=== PATIENT | female | born 1985 | race Caucasian/White ===

== ENCOUNTER → 2019-04-09 | Outpatient (CLI) | payer MEDICAID, SELFPAY ==
[2019-04-09 10:48] VITALS: BMI 32.9
[2019-04-09 12:26] LABS: Hemoglobin A1c 5.7 % (4.2-6.3)
[2019-04-09 12:32] LABS: Estradiol 112.7 pg/mL; Follicle Stimulating Hormone 2.8 mIU/mL; Prolactin 12.4 ng/mL; T4 Free Direct 1.06 ng/dL (0.76-1.46); Thyroid Stim Hormone (TSH) 0.64 uIU/mL (0.358-3.74)
[2019-04-10 20:06] LABS: DHEA Sulfate 100.2 ug/dL (84.8-378.0)
[2019-04-11 09:05] LABS: Testosterone Free 0.7 pg/mL (0.0-4.2)
[2019-04-13 11:22] LABS: 17-Hydroxyprogesterone 225 ng/dL (.)
== END | disposition home or self-care (01) ==
PROVIDERS: Family Provider Family Medicine; PCP Family Medicine; Referring Provider Obstetrics & Gynecology; Visit Provider Obstetrics & Gynecology
DX: N96 Recurrent pregnancy loss (principal)
CPT/HCPCS: 82627; 82670; 83001; 83036; 83498; 84146; 84402; 84439; 84443; 82626

== ENCOUNTER → 2019-04-13 | Outpatient (CLI) | payer MEDICAID, SELFPAY ==
[2019-04-09 10:48] VITALS: BMI 32.9
--- NOTE | 2019-04-13 12:42 | US_ITS ---
STUDY: ULTRASOUND OF THE FEMALE PELVIS - COMPLETE REASON FOR EXAM: Female, 33 years old. Infertility LMP: TECHNIQUE: Transabdominal transvaginal TECHNICAL QUALITY: Adequate. COMPARISON: None. FINDINGS: The uterus is anteverted and is deviated towards the right. The uterus measures 7.7 x 4.6 x 3.8 cm. Normal uterine cervix. The endometrium measures 10 mm in thickness, and is hyperechoic. There is no demonstrated endometrial mass. There is no demonstrated myometrial mass. I.U.D. - The patient does not have an I.U.D. The right ovary is visualized. The right ovary measures 2.7 x 2.8 x 2.2 cm. There is no right ovarian cyst or ovarian mass. There is no visualized right adnexal mass or complex lesion. There is normal arterial and normal venous vascularity. There is a very small hyperechoic area possibly representing focal fat or nonshadowing calcium The left ovary is visualized. The left ovary measures 2.4 x 2.5 x 1.4 cm. There is no left ovarian cyst or ovarian mass. There is no visualized left adnexal mass or complex lesion. There is normal arterial and normal venous vascularity. There is no fluid in the cul-de-sac. The pre void volume of the bladder was 133.8 ml US/Pelvic (Non ) IMPRESSION: No significant abnormalities. Electronically Signed: Toni Martell MD at 18:35 EDT , Service support ,
--- NOTE | 2019-04-13 12:42 | US_ITS ---
STUDY: ULTRASOUND OF THE FEMALE PELVIS - COMPLETE REASON FOR EXAM: Female, 33 years old. Infertility LMP: TECHNIQUE: Transabdominal transvaginal TECHNICAL QUALITY: Adequate. COMPARISON: None. FINDINGS: The uterus is anteverted and is deviated towards the right. The uterus measures 7.7 x 4.6 x 3.8 cm. Normal uterine cervix. The endometrium measures 10 mm in thickness, and is hyperechoic. There is no demonstrated endometrial mass. There is no demonstrated myometrial mass. I.U.D. - The patient does not have an I.U.D. The right ovary is visualized. The right ovary measures 2.7 x 2.8 x 2.2 cm. There is no right ovarian cyst or ovarian mass. There is no visualized right adnexal mass or complex lesion. There is normal arterial and normal venous vascularity. There is a very small hyperechoic area possibly representing focal fat or nonshadowing calcium The left ovary is visualized. The left ovary measures 2.4 x 2.5 x 1.4 cm. There is no left ovarian cyst or ovarian mass. There is no visualized left adnexal mass or complex lesion. There is normal arterial and normal venous vascularity. There is no fluid in the cul-de-sac. The pre void volume of the bladder was 133.8 ml US/Transvaginal Non- IMPRESSION: No significant abnormalities. Electronically Signed: Toni Martell MD at 18:35 EDT , Service support ,
== END | disposition home or self-care (01) ==
LOC: OPUS 12:37
PROVIDERS: Family Provider Family Medicine; PCP Family Medicine; Referring Provider Obstetrics & Gynecology; Visit Provider Obstetrics & Gynecology
DX: N97.9 Female infertility, unspecified (principal); N96 Recurrent pregnancy loss
CPT/HCPCS: 76830; 76856; 93976

== ENCOUNTER → 2022-03-08 | Outpatient (CLI) | payer MEDICAID, SELFPAY ==
[2022-03-08 13:53] LABS: hCG Titer Quant., Serum 6734 mIU/mL (1-3)
== END | disposition home or self-care (01) ==
LOC: PAVLAB 12:39
PROVIDERS: PCP Family Medicine; Referring Provider Obstetrics & Gynecology; Visit Provider Obstetrics & Gynecology
DX: O36.80X0 Pregnancy with inconclusive fetal viability, not applicable or unspecified (principal); N96 Recurrent pregnancy loss; Z3A.00 Weeks of gestation of pregnancy not specified
CPT/HCPCS: 36415; 84702

== ENCOUNTER → 2022-03-10 | Outpatient (CLI) | payer MEDICAID, SELFPAY ==
[2022-03-10 14:06] LABS: hCG Titer Quant., Serum 9448 mIU/mL (1-3)
== END | disposition home or self-care (01) ==
LOC: PAVLAB 13:14
PROVIDERS: PCP Family Medicine; Referring Provider Obstetrics & Gynecology; Visit Provider Obstetrics & Gynecology
DX: N96 Recurrent pregnancy loss (principal); O36.80X0 Pregnancy with inconclusive fetal viability, not applicable or unspecified; Z3A.00 Weeks of gestation of pregnancy not specified
CPT/HCPCS: 36415; 84702; 86850; 86900; 86901

== ENCOUNTER → 2022-03-12 | Outpatient (CLI) | payer MEDICAID, SELFPAY ==
--- NOTE | 2022-03-12 13:05 | US_ITS ---
STUDY: FIRST TRIMESTER OBSTETRICAL ULTRASOUND REASON FOR EXAM: Female, 36 years old. viability TECHNIQUE: Transvaginal US was obtained to better visualized the ovaries. TECHNICAL QUALITY: Adequate. PRIOR ULTRASOUND: None. FINDINGS: There is visualization of a single gestational sac in a normal intrauterine position. The mean sac diameter (MSD) measures 12 mm, indicating an estimated gestational age (EGA) of 5 weeks, 6 days. The gestational sac shape is within normal limits. There is a visualized yolk sac. The yolk sac measures 4.6 mm. The placenta is non-visualized. Due to early gestation, the placenta is not seen. There is visualization of a live embryo. The crown-rump length (CRL) measures 9 mm, indicating an estimated gestational age (EGA) of 6 weeks, 6 days. There is demonstrated cardiac activity with a heart rate of 123 bpm. The estimated gestation age (EGA) by LMP is 4 weeks, 4 days. The estimated date of delivery (ZOHRA) by LMP is 1.30.23. The estimated gestation age (EGA) by US is 6 weeks, 2 days. The estimated date of delivery (ZOHRA) by US is 1.18.23. The uterus measures 8.2 x 5.7 cm. There is no demonstrated uterine fibroid. The cervix is closed. The right ovary measures in cm: 3. There is 14 mm right ovarian corpus luteum cyst. There is no visualized right adnexal mass or complex lesion. The left ovary measures 2.3 cm. There is no left ovarian cyst. There is no visualized left adnexal mass or complex lesion. There is no fluid in the cul de sac. US/Transvaginal w/Preg US IMPRESSION: There is a single live intrauterine with a heart rate of 123 bpm. The estimated gestation age (EGA) by US is 6 weeks, 2 days. The estimated date of delivery (ZOHRA) by US is 1.18.23. Over 2 week discrepancy between the LMP MA and the US MA. Electronically Signed: Malik Wilson MD at 14:03 EDT ,
== END | disposition home or self-care (01) ==
LOC: OPUS 13:05
PROVIDERS: PCP Family Medicine; Visit Provider Obstetrics & Gynecology
DX: O36.80X0 Pregnancy with inconclusive fetal viability, not applicable or unspecified (principal); Z3A.00 Weeks of gestation of pregnancy not specified
CPT/HCPCS: 76817

== ENCOUNTER → 2022-04-06 | Outpatient (CLI) | payer MEDICAID, SELFPAY ==
[2022-04-06 09:07] LABS: Absolute Lymphocyte Count 3.13 X10^3/uL (0.83-4.51); Absolute Neutrophil Count 6.7 X10^3/uL (2.0-7.7); Basophil# 0.04 X10^3/uL; Basophil% 0.4 % (0-1); Eosinophil# 0.31 X10^3/uL; Eosinophils% 2.8 % (0-5); Hematocrit 40.9 % (37-47); Hemoglobin 14.3 g/dL (12.0-15.0); Lymphocyte # 3.13 X10^3/ul (0.83-4.51); Lymphocyte % 28.3 % (19-41); Mean Corpuscular Volume 88.7 fL (81-99); Mean Platelet Vol. 10.2 fl (6.2-12.0); Monocyte# 0.76 X10^3/uL; Monocyte% 6.9 % (0-10); NRBC Flagged by Analyzer 0 % (0-5); Neutrophil # 6.74 X10^3/uL (2.7-7.7); Neutrophil % 60.9 % (47-70); Platelet Count 306 K/mm3 (150-450); RBC Distribution Width CV 12.2 % (11.6-14.6); Red Blood Count 4.61 M/mm3 (4.2-5.4); White Blood Count 11.1 K/mm3 (4.4-11.0)
[2022-04-06 09:57] LABS: NATERA MAILED SPECIMEN
[2022-04-06 10:09] LABS: HIV - WCH Non-Reactive (Nonreactive); Hepatitis B Surface Antigen Non-Reactive (Nonreactive); Hepatitis C Antibody Non-Reactive (Nonreactive); Rubella IgG Reactive (Nonreactive); Syphilis Antibodies Non-reactive
[2022-04-06 10:53] LABS: Amphetamine Urine VISTA NEGATIVE (<1000 ng/mL); Barbiturate Urine VISTA NEGATIVE (< 200 ng/mL); Benzodiazepine Urine VISTA NEGATIVE (< 200 ng/mL); Cocaine Urine VISTA NEGATIVE (< 300 ng/mL); Ecstacy Urine VISTA NEGATIVE (< 500 ng/mL); Methadone Urine VISTA NEGATIVE (< 300 ng/mL); PCP Urine VISTA NEGATIVE (< 25 ng/mL); THC Urine VISTA POSITIVE (< 50 ng/mL); Vista UDS pH Range 6
== END | disposition home or self-care (01) ==
PROVIDERS: PCP Family Medicine; Referring Provider Obstetrics & Gynecology; Visit Provider Obstetrics & Gynecology
DX: O09.91 Supervision of high risk pregnancy, unspecified, first trimester (principal)
CPT/HCPCS: 36415; 80307; 85025; 86703; 86762; 86780; 86803; 86850; 86900; 86901; 87086; 87088; 87340

== ENCOUNTER → 2022-08-06 | Outpatient (CLI) | payer MEDICAID, SELFPAY ==
[2022-08-06 12:15] LABS: Absolute Neutrophil Count 9.7 X10^3/uL (2.0-7.7); Basophil# 0.04 X10^3/uL; Basophil% 0.3 % (0-1); Eosinophil# 0.24 X10^3/uL; Eosinophils% 1.7 % (0-5); Hematocrit 35.6 % (37-47); Lymphocyte % 22.4 % (19-41); Mean Corp Hgb Conc 33.7 g/dL (32-36); Mean Corpuscular Hgb 30.9 pg (27.0-32.0); Mean Corpuscular Volume 91.8 fL (81-99); Mean Platelet Vol. 10.9 fl (6.2-12.0); Monocyte# 0.95 X10^3/uL; Monocyte% 6.7 % (0-10); NRBC Flagged by Analyzer 0 % (0-5); Neutrophil # 9.72 X10^3/uL (2.7-7.7); Neutrophil % 68.1 % (47-70); Platelet Count 258 K/mm3 (150-450); RBC Distribution Width CV 12.3 % (11.6-14.6); RBC Distribution Width SD 40.9 fl (35.1-43.9); Red Blood Count 3.88 M/mm3 (4.2-5.4); White Blood Count 14.3 K/mm3 (4.4-11.0)
[2022-08-06 12:24] LABS: Glucose Challenge Gest 1H 50g 102 mg/dL (70-140)
== END | disposition home or self-care (01) ==
LOC: LAB 11:27
PROVIDERS: PCP Family Medicine; Referring Provider Obstetrics & Gynecology; Visit Provider Obstetrics & Gynecology
DX: O09.91 Supervision of high risk pregnancy, unspecified, first trimester (principal); Z3A.14 14 weeks gestation of pregnancy
CPT/HCPCS: 36415; 82950; 85025; 86850; 86900; 86901

== ENCOUNTER 2022-09-02 16:30 | Outpatient (CLI) | payer MEDICAID, SELFPAY ==
[2022-09-02 16:38] VITALS: BP 121/71; PULSE 107
[2022-09-02 16:43] VITALS: BMI 33.4
[2022-09-02 17:19] LABS: Hematocrit 33.3 % (37-47); Hemoglobin 11.3 g/dL (12.0-15.0); Mean Corp Hgb Conc 33.9 g/dL (32-36); Mean Corpuscular Hgb 30.8 pg (27.0-32.0); Mean Corpuscular Volume 90.7 fL (81-99); Mean Platelet Vol. 10.3 fl (6.2-12.0); Platelet Count 288 K/mm3 (150-450); RBC Distribution Width CV 12.4 % (11.6-14.6); RBC Distribution Width SD 40.9 fl (35.1-43.9); Red Blood Count 3.67 M/mm3 (4.2-5.4); White Blood Count 13.9 K/mm3 (4.4-11.0)
[2022-09-02 17:38] LABS: ALB/GLOB Ratio 0.6 RATIO (0.9-2.4); AST(SGOT) 8 U/L (15-37); Alanine Aminotransfer ALT/SGPT 11 U/L (13-56); Albumin, Serum 2.5 g/dL (3.2-5.0); Alkaline Phosphatase 144 U/L (45-117); Anion Gap 9 (5-15); BUN 7 mg/dL (7-18); BUN/Creat Ratio 12.7 RATIO (10-20); Calcium,Total 8.5 mg/dL (8.5-10.1); Chloride 109 mmol/L (98-107); Creatinine, Serum 0.55 mg/dL (0.55-1.02); EST Glomerular Filtration Rate 132 mL/min (>60); Est Glom Filt Rate - Afr Amer 160 mL/min (>60); Estimated Creatinine Clearance 111.84 ml/min; Globulin 3.9 g/dL (2.2-4.2); Glucose 144 mg/dL (74-106); Lipase 131 U/L (73-393); Potassium 3.5 mmol/L (3.5-5.1); Protein, Total 6.4 g/dL (6.4-8.2); Sodium Level 140 mmol/L (136-145)
[2022-09-02 17:40] LABS: Bacteria 0 SEEN /hpf (None Seen); Mucous, Urine 0 SEEN /hpf (<or=2+); Red Blood Cells-Urine 0 SEEN /hpf (0-5); White Blood Cells 0 SEEN /hpf (0-5)
[2022-09-02] MEDS: Acetaminophen 500 MG Tablet 1000 MG PO (17:42)
[2022-09-02] MEDS: Ondansetron 8 MG Tablet 4 MG PO (17:43)
[2022-09-02 17:59] LABS: Color, Urine Yellow (Yellow); Glucose, Dipstick Normal (Normal); Ketone-Dipstick Negative (Negative); Leukocyte Esterase-Dipstick Negative /ul (Negative); Nitrite-Dipstick Negative (Negative); Occult Blood-Urine Negative /ul (Negative); Protein-Dipstick Negative (Negative); Specific Gravity, Urine 1.015 (1.002-1.030); Urine Bilirubin Dipstick Negative (Negative); Urine Clarity Sl. Cloudy (Clear); Urine Urobilinogen Normal (Normal)
[2022-09-02 18:35] LABS: Squamous Epithelial Cells - UA 0-5 SEEN /hpf (5-10)
--- NOTE | 2022-09-04 15:16 | OB.TRI.PN ---
Progress Notes Date of Service: 09/02/22 Progress Note: Patient presents for triage evaluation secondary to nausea and vomiting FHT: 150 Moderate variability reactive no decelerations category I tracing [place]: no regular Contractions Assessment and plan: viral gastroenteritis Reactive NST, reassuring maternal and status patient discharged to home to follow-up as scheduled. See problem list details for additional plan information. Laboratory Studies: Laboratory Tests 09/02/22 09/02/22 09/02/22 Range/Units 17:30 17:10 17:10 WBC 13.9 H (4.4-11.0) K/mm3 RBC 3.67 L (4.2-5.4) M/mm3 Hgb 11.3 L (12.0-15.0) g/dL Hct 33.3 L (37-47) % MCV 90.7 (81-99) fL MCH 30.8 (27.0-32.0) pg MCHC 33.9 (32-36) g/dL RDW Std Deviation 40.9 (35.1-43.9) fl RDW Coeff of Caleb 12.4 (11.6-14.6) % Plt Count 288 (150-450) K/mm3 MPV 10.3 (6.2-12.0) fl Sodium 140 (136-145) mmol/L Potassium 3.5 (3.5-5.1) mmol/L Chloride 109 H (98-107) mmol/L Carbon Dioxide 22.0 (21.0-32.0) mmol/L Anion Gap 9 (5-15) BUN 7 (7-18) mg/dL Creatinine 0.55 (0.55-1.02) mg/dL Estim Creat Clear Calc 111.84 ml/min Est GFR (MDRD) Af Amer 160 (>60) mL/min Est GFR (MDRD) Non-Af 132 (>60) mL/min BUN/Creatinine Ratio 12.7 (10-20) RATIO Glucose 144 H (74-106) mg/dL Calcium 8.5 (8.5-10.1) mg/dL Total Bilirubin 0.20 (0.20-1.00) mg/dL AST 8 L (15-37) U/L ALT 11 L (13-56) U/L Alkaline Phosphatase 144 H (45-117) U/L Total Protein 6.4 (6.4-8.2) g/dL Albumin 2.5 L (3.2-5.0) g/dL Globulin 3.9 (2.2-4.2) g/dL Albumin/Globulin Ratio 0.6 L (0.9-2.4) RATIO Lipase 131 (73-393) U/L Urine Color Yellow (Yellow) Urine Clarity Sl. Cloudy (Clear) Urine pH 6.0 (5.0 - 8.0) Ur Specific [place] 1.015 (1.002-1.030) Urine Protein Negative (Negative) mg/dl Urine Glucose (UA) Normal (Normal) mg/dl Urine Ketones Negative (Negative) mg/dl Urine Occult Blood Negative (Negative) /ul Urine Nitrite Negative (Negative) Urine Bilirubin Negative (Negative) mg/dL Urine Urobilinogen Normal (Normal) mg/dl Ur Leukocyte Esterase Negative (Negative) /ul Urine RBC 0 SEEN (0-5) /hpf Urine WBC 0 SEEN (0-5) /hpf Ur Squamous Epith Cells 0-5 SEEN (5-10) /hpf Urine Bacteria 0 SEEN (None Seen) /hpf Urine Mucus 0 SEEN (<or=2+) /hpf Charges/Coding Procedures Urinary/Genital [id number]: [id number] non-stress test Interp
== END 2022-09-02 18:30 | disposition home or self-care (01) ==
LOC: WPOUT 16:31 → WP 16:32
PROVIDERS: PCP Family Medicine; Visit Provider Obstetrics & Gynecology
DX: O98.819 Other maternal infectious and parasitic diseases complicating pregnancy, unspecified trimester (principal); A08.4 Viral intestinal infection, unspecified
CPT/HCPCS: 59025; 59050; 80053; 81001; 83690; 85027; 87086; 99218; G0378

== ENCOUNTER → 2022-09-28 | Outpatient (CLI) | payer MEDICAID, SELFPAY ==
--- NOTE | 2022-09-28 11:13 | US_ITS ---
STUDY: SECOND AND THIRD TRIMESTER OBSTETRICAL ULTRASOUND - LIMITED REASON FOR EXAM: Female, 36 years old growth 36 weeks LMP: 01/27/2022. ZOHRA: 11/03/2022. PRIOR ULTRASOUND: 03/12/2022. TECHNIQUE: Transabdominal scanning. TECHNICAL QUALITY: Adequate. FINDINGS: There is a single intrauterine fetus. The fetus is in a breech presentation. There is demonstrated cardiac activity with a heart rate of 144 bpm. There is a normal amniotic fluid volume. The largest amniotic fluid pocket measures 5.1 cm. The amniotic fluid index (IHSAN) is 9.92 cm. The placenta is fundal. No placenta previa or abruption is identified. The cervix was obscured. Fluid is noted within the stomach and urinary bladder. anatomic survey was not performed. BIOMETRY: BPD: 8.77 cm: 35 weeks, 3 days (head biometry may not be accurate due to positioning). HC: 32.2 cm: 36 weeks, 3 days AC: 29.56 cm: 33 weeks, 4 days FL: 7.02 cm: 36 weeks, 0 days Age by LMP: 34 weeks, 6 days. ZOHRA by LMP: 11/03/2022. age by current US: 35 weeks, 1 days. ZOHRA by current US: 11/01/2022. Estimated weight: 2493 grams, +/- 374 grams, 41.8 percentile. FL/AC: 23.75%, within the normal range. FL/BPD: 80%, within the normal range. FL/HC: 21.8%, within the normal range. CI: 80.78%, within the normal range. HC/AC: 1.09, within the normal range. US/OB Limited With Biometrics IMPRESSION: Single intrauterine demonstrating cardiac activity, in breech position. IHSAN measures 9.92 cm. Estimated weight of 2493 g. Electronically Signed: Abelino Hampton MD at 4:15 EST ,
== END | disposition home or self-care (01) ==
LOC: US 11:12
PROVIDERS: PCP Family Medicine; Visit Provider Obstetrics & Gynecology
DX: N96 Recurrent pregnancy loss (principal); O09.513 Supervision of elderly primigravida, third trimester; Z3A.36 36 weeks gestation of pregnancy
CPT/HCPCS: 76816

== ENCOUNTER → 2022-09-29 | Outpatient (CLI) | payer MEDICAID, SELFPAY ==
--- NOTE | 2022-09-29 09:09 | US_ITS ---
STUDY: OBSTETRICAL ULTRASOUND - BIOPHYSICAL PROFILE REASON FOR EXAM: Female, 36 years old well being LMP: 01/27/2022 PRIOR ULTRASOUND: 09/28/2022 TECHNIQUE: Transabdominal TECHNICAL QUALITY: Adequate. FINDINGS: There is a single intrauterine fetus. The fetus is in a breech presentation. There is demonstrated cardiac activity with a heart rate of 173 bpm. There is a normal amniotic fluid volume. The largest amniotic fluid pocket measures 3.88 cm. The amniotic fluid index (IHSAN) is 10.53 cm. The placenta is fundal in location. There are Grade 2 placental changes. Age by LMP: 35 weeks, 0 days. ZOHRA by LMP: 11/03/2022. BIOPHYSICAL PROFILE: Breathing Movements (FBM): 2 Gross Body Movements (GBM): 2 Tone (FT): 2 Amniotic Fluid Volume (AFV): 2 TOTAL SCORE: 8 / 8 US/Biophysical Prof W/O Non Stres IMPRESSION: Normal biophysical profile of 8/8. presentation remains breech Electronically Signed: Anjum Chirinos MD at 11:57 EST ,
== END | disposition home or self-care (01) ==
LOC: OPUS 09:07
PROVIDERS: PCP Family Medicine; Visit Provider Obstetrics & Gynecology
DX: O26.879 Cervical shortening, unspecified trimester (principal); N96 Recurrent pregnancy loss
CPT/HCPCS: 76819

== ENCOUNTER → 2022-10-07 | Outpatient (CLI) | payer MEDICAID, SELFPAY ==
--- NOTE | 2022-10-07 09:07 | US_ITS ---
STUDY: OBSTETRICAL ULTRASOUND - BIOPHYSICAL PROFILE REASON FOR EXAM: Female, 36 years old well being LMP: 01/27/2022. PRIOR ULTRASOUND: Comparison is made with prior study dated 09/29/2022. TECHNIQUE: Transabdominal TECHNICAL QUALITY: Adequate. FINDINGS: There is a single intrauterine fetus. The fetus is in a breech presentation. There is demonstrated cardiac activity with a heart rate of 152 bpm. There is a normal amniotic fluid volume. The largest amniotic fluid pocket measures 3.6 cm. The amniotic fluid index (IHSAN) is 12 cm. The placenta is fundal in location. There are Grade 2 placental changes. Age by LMP: 36 weeks, 1 days. ZOHRA by LMP: 11/03/2022. BIOPHYSICAL PROFILE: Breathing Movements (FBM): 2 Gross Body Movements (GBM): 2 Tone (FT): 2 Amniotic Fluid Volume (AFV): 2 TOTAL SCORE: / US/Biophysical Prof W/O Non Stres IMPRESSION: Normal biophysical profile of 05/24. Electronically Signed: Henry Amaya MD at 13:19 EST ,
== END | disposition home or self-care (01) ==
PROVIDERS: PCP Family Medicine; Referring Provider Registered Nurse; Visit Provider Registered Nurse
DX: O26.879 Cervical shortening, unspecified trimester (principal); N96 Recurrent pregnancy loss; Z3A.36 36 weeks gestation of pregnancy; O32.1XX0 Maternal care for breech presentation, not applicable or unspecified
CPT/HCPCS: 76819; 87081

== ENCOUNTER → 2022-10-13 | Outpatient (CLI) | payer MEDICAID, SELFPAY ==
--- NOTE | 2022-10-13 09:15 | US_ITS ---
STUDY: ULTRASOUND BIOPHYSICAL PROFILE REASON FOR EXAM: Female, 36 years old. well-being TECHNIQUE: Transverse abdominal pelvic ultrasound was performed. TECHNICAL QUALITY: Adequate. COMPARISON: 10/07/2022 FINDINGS: Examination demonstrates a single live intrauterine gestation in breech presentation. The heart rate is 145 BPM. Placenta is fundal with no previa. The placental grade is 2. Amniotic fluid volume is normal with an IHSAN of 10.1 cm., Largest pocket is 3.4 cm BIOPHYSICAL PROFILE (BPP) breathin/2 movement: 2/2 tone: 2/2 Amniotic fluid: 2/2 US/Biophysical Prof W/O Non Stres IMPRESSION: Normal biophysical profile 05/24. Electronically Signed: Anjum Chirinos MD at 14:56 EST ,
== END | disposition home or self-care (01) ==
LOC: OPUS 09:14
PROVIDERS: PCP Family Medicine; Visit Provider Registered Nurse
DX: O26.879 Cervical shortening, unspecified trimester (principal); N96 Recurrent pregnancy loss
CPT/HCPCS: 76819

== ENCOUNTER 2022-10-19 11:00 | Inpatient (IN) | payer MEDICAID, SELFPAY ==
[2022-10-19] VITALS (21 sets, daily range): BP systolic 93–140; BP diastolic 40–80; PULSE 91–103; RESP 16–20; TEMP 35.8–37.4; O2SAT 95–99; BMI 35.5
[2022-10-19 09:52] LABS: Hematocrit 35.5 % (37-47); Hemoglobin 12.1 g/dL (12.0-15.0); Mean Corp Hgb Conc 34.1 g/dL (32-36); Mean Platelet Vol. 10.3 fl (6.2-12.0); Platelet Count 277 K/mm3 (150-450); RBC Distribution Width CV 12.8 % (11.6-14.6); RBC Distribution Width SD 42.3 fl (35.1-43.9); White Blood Count 14.8 K/mm3 (4.4-11.0)
[2022-10-19 10:04] LABS: AST(SGOT) 9 U/L (15-37); Alanine Aminotransfer ALT/SGPT 10 U/L (13-56); Creatinine, Serum 0.57 mg/dL (0.55-1.02); EST Glomerular Filtration Rate 126 mL/min (>60); Est Glom Filt Rate - Afr Amer 153 mL/min (>60); Estimated Creatinine Clearance 107.92 ml/min; Uric Acid 4.5 mg/dL (2.6-6.0)
[2022-10-19 10:06] LABS: Protein, Urine (Random) 7.4 mg/dL (<11.9); Protein:Creat Ratio 262 mg/g CRE (0-200)
[2022-10-19] MEDS: 0.9 % NaCl (Sterile) Posiflush 10 mL IV (10:31)
[2022-10-19] MEDS: Lactated Ringers 1,000 ML 999 ML IV (10:31)
--- NOTE | 2022-10-19 11:03 | HP.PCM.OB_ITS ---
HPI - General General Date of Admission: 10/19/22 HPI Narrative ELIE FREEMAN, is a 36y/o @ 37 weeks 6 days who presents to L&D due to back pain and contraction pain and elevated blood pressures at home. She was found to be dilated 1 cm and 0 to +1 station, IV fluids were started and contractions continued. On repeat check she was found to be breech and 1.5 cm dilated, softer, and tearful. She is diagnosed to be in early labor. The patient has a history of 2 prior sections. Her last meal was last night. She denies loss of fluid, vaginal bleeding, dec fm, headaches, nausea, or ruq pain. Maternal Data Information ZOHRA Calculator Estimated Delivery Date Method Current WG Current Estimate 11/03/22 Ultrasound #1 37w 6d PFSH PFS Medical History Abnormal Pap smear of cervix Anemia Anxiety Asthma Atrial fibrillation Depression Fibromyalgia Hypothyroidism IBS (irritable bowel syndrome) Marijuana abuse Migraines Home Medications cetirizine 10 mg capsule (Zyrtec) 10 mg PO DAILY Check with primary doctor 07/09/22 [History Last Taken 1 Day Ago ~09/01/22] vitamin#30 30 mg iron-10 mg iron-folic acid 1 mg-omg3 capsule 1 cap PO DAILY 07/09/22 [History Last Taken 1 Day Ago ~09/01/22] progesterone micronized 200 mg capsule See Rx Instructions .Route .COMPLEX #90 caps 07/16/22 [Rx Last Taken 1 Day Ago ~09/01/22] citalopram 40 mg tablet 40 mg PO DAILY anxiety 10/19/22 [History Last Taken Unknown] Allergy/AdvReac Type Severity Reaction Status Date / Time amoxicillin Allergy Mild vomiting Verified 10/15/22 13:34 aspirin Allergy Mild vomiting Verified 10/15/22 13:34 azithromycin [From Zithromax] Allergy Mild Vomiting Verified 10/19/22 09:13 codeine Allergy Mild hallucinati Verified 10/15/22 13:34 ons doxycycline Allergy Mild vomiting Verified 10/15/22 13:34 Penicillins Allergy Mild vomiting Verified 10/15/22 13:34 Family History Father Atrial fibrillation Sister Atrial fibrillation Aunt Atrial fibrillation Uncle Atrial fibrillation Grandmother Atrial fibrillation Mother Thyroid disorder Other Diabetes Surgical History H/O oral surgery History of surgery on right wrist S/P s/p low back surgery S/P tonsillectomy and adenoidectomy Social History Smoking Status: Light Smoker (<10/day) alcohol intake: never substance use type: does not use caffeine: Yes what type of physical activity do you participate in: none frequency: daily seatbelt use: always do you feel safe at home: Yes additional social history: Boyfriend-Abilio 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 Date Name GA/Weeks Outcome Route Bth Weight Gen Labor Lgth Anesthesia Del Locatn Provider FOB 04/10/06 Justine 38 live - full term 6lbs Female Merged with [facility] Dr. Naveen Ontiveros 03/16/12 Marzena 20 still Female [facility] [place] Delivery Date: 04/10/06 Last Updated by: Beverly Cobos Early contractions at 3 1/2 months. Labored stalled. Delivery Date: 03/16/12 Last Updated by: Beverly Cobos Spotting, cramping continuously. Visit Details Expected Delivery Route/Plan RLTCS Plans Covid status:discussed Flu vaccine: discussed Tdap vaccine: no Rhogam: no LARC form signed: yes movement and labor precautions reviewed. Problem list reviewed and updated with the most current plan of care details and appropriate orders placed. Relevant counseling for the gestational age provided. Continue routine care and follow up unless otherwise noted in visit notes/problem list details OB Flowsheet Initial Weight: Not Recorded Date -?-?-?-?-?-?-?-?-?-?-?-?- EGA Weight BP Urine Prot -?-?-?-?-?-?-?-?-?-?-?-?- Glucose FHR FuHt Pres Dilation -?-?-?-?-?-?-?-?-?-?-?-?- Effaced St Visit Note 03/16/22 -?-?-?-?-?-?-?-?-?-?-?-?- 6w 6d 158 lb 2 oz 130/80 130/80 -?-?-?-?-?-?-?-?-?-?-?-?- 160 -?-?-?-?-?-?-?-?-?-?-?-?- JV- CRL measurin g 7w2d today consistent with ultrasound last week. pt states that bleeding stopped. There is a small subchorionic hemorrhage. Starting vaginal progesterone. 04/06/22 -?-?-?-?-?-?-?-?-?-?-?-?- 9w 6d 162 lb 124/78 -?-?-?-?-?-?-?-?-?-?-?-?- 156 -?-?-?-?-?-?-?-?-?-?-?-?- JV- CRL measurin g 10 weeks 4 days today. pt was at [facility] over the weekend for heavy bleeding after she was jumped on by a dog. On ultrasound there is blood in the cx but nothin around the placenta or fetus. plan to keep appt with MFM later this month. 05/07/22 -?-?-?-?-?-?--?-?-?-?-?-?- 14w 2d 173 lb 4 oz 118/72 Nega tive -?-?-?-?-?-?-?-?-?-?-?-?- Negative 150 -?-?-?-?-?-?-?-?-?-?-?-?- SM- no vb alberto ng has fu with mfm next week, having dizziness and palpitations refer to cardio for consult 07/09/22 -?-?-?-?-?-?-?-?-?-?-?-?- 23w 2d 175 lb 126/82 Negative -?-?-?-?-?-?-?-?-?-?--?-?- Negative 140 23 -?-?-?-?-?-?-?-?-?-?-?-?- SM- discussed lopes sn't shown for visit due to ride issues, reviewed. has echo scheduled. 08/06/22 -?-?-?-?-?-?-?-?-?-?-?-?- 27w 2d 179 lb 4 oz 120/76 Nega tive -?-?-?-?-?-?-?-?-?-?-?-?- Negative 140 27 -?-?-?-?-?-?-?-?-?-?-?-?- SM- no vb lof go od fm no regualr ctx cbc gct 08/26/22 -?-?-?-?-?-?-?-?-?-?-?-?- 30w 1d 184 lb 4 oz 124/78 Nega tive -?-?-?-?-?-?-?-?-?-?-?-?- Negative 146 31 -?-?-?-?-?-?-?-?-?-?-?-?- MH-No VB, LOF. G ood FM. Larc. 09/08/22 -?-?-?-?-?-?-?-?-?-?-?-?- 32w 0d 186 lb 8 oz 115/74 Nega tive -?--?-?-?-?-?-?-?-?-?-?-?- Negative 130 -?-?-?-?-?-?-?-?-?-?-?-?- LC-no vb,lof,ctx . good fm. NST reactive today. denies concerns. 09/15/22 -?-?-?-?-?-?-?-?-?--?-?-?- 33w 0d 187 lb 136/72 Negative -?-?-?-?-?-?-?-?-?-?-?-?- Negative 150 -?-?-?-?-?-?-?-?-?-?-?-?- MH-NST only reac tive 09/22/22 -?-?-?-?-?-?-?-?-?-?-?-?- 34w 0d 194 lb 121/80 Negative -?-?-?-?-?-?-?-?-?-?-?-?- Negative 130 -?-?-?-?-?-?-?-?-?-?-?-?- JV pt is to be h aving bpp's weekly not nst's we fixed that today. no complains. rto in 2 weeks and in one week for bpp 10/07/22 -?-?-?-?-?-?-?-?-?-?-?-?- 36w 1d 189 lb 8 oz 124/72 Nega tive -?-?-?-?-?-?-?-?-?-?-?-?- Negative 142 38 Breech 1 -?-?-?-?-?-?-?-?-?-?-?-?- 0 MH-No VB , LOF. Good FM. BPP today. GBS done 10/15/22 -?-?-?-?-?-?-?-?-?-?-?-?- 37w 2d 197 lb 4 oz 127/8 127/88 Negative -?-?-?-?-?-?-?-?-?-?-?-?- Negative 140 38 -?-?-?-?-?-?-?-?-?-?-?-?- SM- no vb lof go od fm no regular ctx ROS Constitutional Constitutional: Denies change in weight, fatigue, fever(s), headache(s), poor appetite or weakness Eyes Eyes: Denies blurry vision, change in vision, seeing flashes or spots in vision ENT HEENT: Denies dizziness, headache(s), loss taste/smell or sore throat Cardiovascular Cardiovascular: Denies chest pain, dizziness, dyspnea, irregular heart rhythm, leg edema, palpitations, rapid heart rate or vomiting Respiratory/Chest Respiratory/Chest: Denies chest tightness, cough, dyspnea or breast pain Gastrointestinal Gastrointestinal: Denies abdominal pain, anorexia, constipation, cramping, diarrhea, hemorrhoids, vomiting or weight changes Genitourinary Genitourinary: Denies dysuria, flank pain, genital lesions, genital pain, urinary frequency or urinary urgency Musculoskeletal Musculoskeletal: Denies back pain, difficulty walking, joint pain, limited range of motion, muscle cramps or numbness Integumentary Integumentary: Denies lesions or unusual bruising Neurologic Neurologic: Denies abnormal movements, abnormal speech, dizziness, numbness, seizure-like activity or syncope Psychiatric Psychiatric: Denies anxiety, behavioral changes, change in appetite, change in libido, cognitive impairment, confusion, depression, difficulty concentrating, hallucinations or suicidal thoughts Endocrine Endocrinology: Denies excessive sweating, polydipsia or polyuria Hematologic/Lymphatic Hematologic/Lymphatic: Denies easy bleeding, easy bruising or lymphadenopathy Allergic/Immunologic Allergic/Immunologic: Denies itchy eyes, lip swelling, seasonal rhinorrhea, rhinitis, throat swelling, tongue swelling, eczemia, wheezing or asthma Vital Signs Vital Signs Vital Signs: 10/19/22 09:12 10/19/22 09:12 10/19/22 09:27 Pulse Rate 92 Blood Pressure 140/75 H 134/76 H BP Systolic 140 134 BP Diastolic 75 76 10/19/22 09:27 10/19/22 09:43 10/19/22 09:43 Pulse Rate 96 101 H Blood Pressure 133/80 H BP Systolic 133 BP Diastolic 80 10/19/22 09:57 10/19/22 09:57 10/19/22 10:12 Pulse Rate 93 Blood Pressure 119/64 122/64 H BP Systolic 119 122 BP Diastolic 64 64 10/19/22 10:12 Pulse Rate 100 Blood Pressure BP Systolic BP Diastolic Weight Weight: 194 lb 7.163 oz Body Mass Index (BMI) 35.5 Physical Exam Const alert, oriented x3, no apparent distress and healthy appearing General Appearance: cooperative; Negative for anxious HEENT normocephalic Face and Sinus: normal facial exam Eyes EOMs intact bilaterally and no scleral icterus General Eye: normal appearance of both eyes Neck full ROM and supple Lymph Lymphatic: no lymphadenopathy noted Chest Chest: abnormal inspection of the chest Resp normal respiratory effort Effort and Inspection: able to speak in complete sentences Cardio regular rate GI soft to palpation and non-tender Inspection: gravid Palpation: soft; Negative for tender Back/Spine no CVA tenderness Extremity normal to inspection, full ROM and no clubbing, cyanosis or edema General Extremity: Negative for calf tenderness or edema Skin Lesions: no lesions Rashes: no rashes Psych mental status grossly normal Labs Labs Labs: Blood Type A POSITIVE Antibody Screen NEGATIVE Hct 35.5 % (37-47) L Hgb 12.1 g/dL (12.0-15.0) Pap Smear Negative Obstetrics US Syphilis Total Ab Non-reactive Rubella IgG Antibody Reactive (Nonreactive) Hep Bs Antigen Non-Reactive (Nonreactive) HIV 1&2 Antibody Non-Reactive (Nonreactive) Glucose 1 Hr 50 gm 102 mg/dL (70-140) Miscellaneous Test Assessment & Plan (1) Breech presentation: (2) Short cervical length during : COMMENT: progesterone supplement. stable doing well. (3) Marijuana abuse: COMMENT: +tox 04/06, random screening (4) : QUALIFIERS: Weeks of gestation: 34 weeks Qualified Code(s): Z3A.34 - 34 weeks gestation of COMMENT: GBS Negative, anatomy nl, carrier neg. , NIPT low risk. NT normal 1st trimester (5) History of delivery: COMMENT: patient desires repeat section. RLTCS scheduled 10/27/22 with [facility] (6) Supervision of high risk , unspecified, first trimester: COMMENT: PRR ZOHRA 11/03/22 PC Marzena Catalan(stillbirth) BF Abilio (7) Recurrent loss: COMMENT: nl US and neg APL workup06/07 CL check in 2 wks, 07/08 CL nl, serial growth US, wkly BPP after 32 wk, growth 08/19 1350g 52% cancelling nsts and ordering weekly BPP for h/o 20+ week loss per m. 10/07 nl BPP. (8) Atrial fibrillation: COMMENT: previously.. no meds. stable. (9) Hypothyroidism: QUALIFIERS: Hypothyroidism type: acquired Qualified Code(s): E03.9 - Hypothyroidism, unspecified COMMENT: no meds, thyromegaly. labs nl. (10) Anxiety: COMMENT: counseling encouraged, increased celexa to 40mg. PLAN: Plan plan for ERAS repeat section sandra due to early labor and breech presentation 2 grams Ancef now. labs to include tox screen due to h/o THC use during early .
[2022-10-19] MEDS: Lactated Ringers 1,000 ML 150 ML IV (11:32)
[2022-10-19] MEDS: Acetaminophen 500 MG Tablet 1000 MG PO ×3 (11:45→23:49)
[2022-10-19] MEDS: Sodium Citrate/Citric Acid 30 ML UDC PO (11:47)
[2022-10-19 11:59] LABS: Amphetamine Urine VISTA NEGATIVE (<1000 ng/mL); Barbiturate Urine VISTA NEGATIVE (< 200 ng/mL); Benzodiazepine Urine VISTA NEGATIVE (< 200 ng/mL); Cocaine Urine VISTA NEGATIVE (< 300 ng/mL); Ecstacy Urine VISTA NEGATIVE (< 500 ng/mL); Methadone Urine VISTA NEGATIVE (< 300 ng/mL); PCP Urine VISTA NEGATIVE (< 25 ng/mL); THC Urine VISTA NEGATIVE (< 50 ng/mL); Vista UDS pH Range 7
[2022-10-19] MEDS: Cefazolin 2 GM in 0.9% Normal Saline 100 ML IV (12:00)
--- NOTE | 2022-10-19 12:16 | DCINST_ITS ---
Discharge Instructions Diet Discharge Diet: No restrictions Activity Discharge Activity: May Not Drive (for 2 weeks or while taking narcotic pain medications.), May Shower and May Take a Tub Bath (in 7 days.) May resume sexual activity in: 4-6 weeks Weight Bearing Status: Full weight bearing Lifting Restrictions: 20 pounds Dressing / Incision Call your doctor if your incision/area has: Continuous Slow Oozing, Sudden Increased Bleeding, Increased Pain/ Swelling, Increased Redness and Foul Smelling Discharge Call your doctor if you observe: Fever of 101 or Higher and Using more than 1 pad per hour Suture Line Care: Avoid Pulling/Pushing and Avoid Pinching/Bending Cleanse incision/area with: Soap & Water and Keep Dressing Clean & Dry Follow Up Care Please Follow Up With: Kika Cardenas DO When: Call [phone] to make an appointment for an incision check in 1-2 weeks. Test Results: Test results from this visit will be discussed in further detail at your follow- up appointment, if applicable. Discharge Plan Admission Admit Date/Time: 10/19/22 11:00 Primary Reason for Your Visit: section Attending Provider: Kika Cardenas Primary Care Provider: Leslie Richmond Discharge Orders/Prescriptions Prescriptions: New oxycodone-acetaminophen [Percocet] 5-325 mg tablet 1 tab PO Q4H PRN (Reason: pain) 7 Days Qty: 30 0RF Rx Instructions: 1-2 tabs q 4 hrs as needed for pain naproxen 500 mg tablet 500 mg PO BID PRN (Reason: pain) Qty: 30 0RF Continued PNV #[id number] 30 mg iron-10 mg iron-1 mg capsule 1 cap PO DAILY Zyrtec 10 mg capsule 10 mg PO DAILY citalopram 40 mg tablet 40 mg PO DAILY Discontinued progesterone micronized 200 mg capsule See Rx Instructions .ROUTE .COMPLEX Qty: 90 0RF Dose Instruction: INSERT 1 CAPSULE VAGINALLY AT BEDTIME PHARMACY NOT CONTRACTED Rx Instructions: INSERT 1 CAPSULE VAGINALLY AT BEDTIME PHARMACY NOT CONTRACTED Referrals / Follow Up: Leslie Richmond MD [Primary Care Provider] - Disposition Disposition (needs filled in before D/C Order can be placed): Home, Self Care
--- NOTE | 2022-10-19 13:25 | OP.PCM_ITS ---
Assessment & Plan (1) Recurrent loss: COMMENT: nl US and neg APL workup06/07 CL check in 2 wks, 07/08 CL nl, serial growth US, wkly BPP after 32 wk, growth 08/19 1350g 52% cancelling nsts and ordering weekly BPP for h/o 20+ week loss per mfm. 10/07 nl BPP. (2) Supervision of high risk , unspecified, first trimester: COMMENT: PRR ZOHRA 11/03/22 Marzena Rodriguez(stillbirth) BF Abilio (3) History of delivery: COMMENT: patient desires repeat section. RLTCS scheduled 10/27/22 with JV (4) : QUALIFIERS: Weeks of gestation: 34 weeks Qualified Code(s): Z3A.34 - 34 weeks gestation of COMMENT: GBS Negative, anatomy nl, carrier neg. , NIPT low risk. NT normal 1st trimester (5) Short cervical length during : COMMENT: progesterone supplement. stable doing well. (6) Breech presentation: (7) Marijuana abuse: COMMENT: +tox 04/06, random screening (8) Atrial fibrillation: COMMENT: previously.. no meds. stable. (9) Hypothyroidism: QUALIFIERS: Hypothyroidism type: acquired Qualified Code(s): E03.9 - Hypothyroidism, unspecified COMMENT: no meds, thyromegaly. labs nl. (10) Anxiety: COMMENT: counseling encouraged, increased celexa to 40mg. Maternal Data Information ZOHRA Calculator Estimated Delivery Date Method Current WG Current Estimate 11/03/22 Ultrasound #1 37w 6d Final ZOHRA: 11/03/22 Final ZOHRA Source: US <20 weeks Gestational age: 37 weeks 6 days Details Operative Information Date of Procedure: 10/19/22 Pre-Operative Diagnosis: @ 37 weeks 6 days, early labor, breech presentation, prior section Post-Operative Diagnosis: @ 37 weeks 6 days, early labor, breech presentation, prior section Classification: ALESSANDRA Procedure Type: low transverse operator maintainer #1: Kiki Harvey Type of Anesthesia: Spinal Antibiotic Given: Ancef 2 grams IV x1 Estimated Blood Loss: 600cc Fluids Replaced: 1800cc Findings Description of Procedure: The patient is a 36 y/o @ 37 weeks 6 days presented for repeat in early labor and breech presentation. Spinal anesthesia was placed without difficulty. Bey catheter was placed. The patient was placed in the dorsal supine position with leftward tilt. Patient was prepped and draped in the normal sterile fashion. Pfannenstiel skin incision was made with the scalpel and carried through to the underlying layer of fascia with the scalpel. Fascia was nicked in the midline and the incision extended laterally. The rectus bellies were dissected off superiorly and inferiorly with out complication both sharply and bluntly. The peritoneum was entered digitally. The incision was stretched and a low transverse uterine incision was made with the scalpel. The infant's buttocks was delivered through the uterus incision and the infant was delivered to the anterior shoulder, which was delivered with a sweeping motion. A sterile towel was then wrapped around the infant's waist and the turned in a counterclockwise manner to deliver the posterior shoulder in the same fashion. The head was delivered atraumatically. The cord was clamped and cut and the was handed off to awaiting nurse. The placenta was delivered spon taneously immediately following and was noted to be intact and have a three- vessel cord. The uterus was exteriorized cleared of all clots and debris, and the incision was closed in a double layer closure using #1 Monocryl. The ovaries and fallopian tubes were noted to be within normal limits. The uterus was returned to the maternal abdomen and gutters were cleared of all clots and debris. The peritoneum was closed with 3-0 Monocryl in a running fashion. Gloves were changed prior to fascial closure. Fascia was closed with 0 PDS in a running fashion. Subcutaneous tissue was copiously irrigated and the skin was closed with 3-0 Monocryl in a subcuticular fashion. Mepilex dressing was applied without complication. Patient was taken to recovery in stable condition. It was discussed with the patient that based on the clinical information obtained during this encounter, combined with her history, at this time I would recommend repeat section for future deliveries if further pregnancies are desired. Presentation: Positive for Vertex Amniotic Membrane Rupture Type: Artificial Amniotic Fluid Description: Clear Placental Delivery Description: Manual Removal Placenta Disposition: [facility] Cord Vessel Description: 3 Vessels Cord Entanglement: None Infant A Gender: Female (1 minute): 9 (5 minute): 9 Delayed Cord Clamping: Yes Complications Risks of Surgery Discussed w/Patient: Bleeding, Anesthesia Risks, Infection, Need for Future C-Sections and Injury to surrounding structure(s) including bowel and bladder Multi Select Codes Urinary/Genital Urinary/Genital CPT Codes: 39969 delivery+ Care([facility])
[2022-10-19] MEDS: Oxytocin 15 Units/NS 250ml 15 UNITS/250 ML IV.SOLN 83 UNITS IV (13:30)
[2022-10-19] MEDS: Ketorolac 30 MG/ML Syringe IV ×2 (13:51→21:49)
[2022-10-19] MEDS: Lactated Ringers 1,000 ML 100 ML IV (16:33)
[2022-10-19] MEDS: Citalopram 40 MG TABLET PO (21:50)
[2022-10-19] MEDS: Enoxaparin 40 MG/0.4 ML Syringe SC (23:48)
[2022-10-20] MEDS: Lactated Ringers 1,000 ML 100 ML IV (02:09)
[2022-10-20 03:38] VITALS: BP 117/79; PULSE 90; RESP 16; TEMP 36.1; O2SAT 94
[2022-10-20] MEDS: Ketorolac 30 MG/ML Syringe IV ×2 (03:43→09:40)
[2022-10-20 05:31] LABS: Hematocrit 30.5 % (37-47); Mean Corp Hgb Conc 32.8 g/dL (32-36); Mean Corpuscular Hgb 30.7 pg (27.0-32.0); Mean Corpuscular Volume 93.6 fL (81-99); Mean Platelet Vol. 10.1 fl (6.2-12.0); Platelet Count 242 K/mm3 (150-450); RBC Distribution Width CV 12.7 % (11.6-14.6); RBC Distribution Width SD 43.7 fl (35.1-43.9); Red Blood Count 3.26 M/mm3 (4.2-5.4); White Blood Count 16.9 K/mm3 (4.4-11.0)
[2022-10-20] MEDS: Acetaminophen 500 MG Tablet 1000 MG PO ×2 (06:29→13:26)
[2022-10-20 08:34] VITALS: BP 127/70; PULSE 92; RESP 18; TEMP 36.3; O2SAT 97
--- NOTE | 2022-10-20 08:35 | PN.OBGYN_ITS ---
Subjective Subjective Patient doing well without complaints. Tolerating PO. Ambulating and voiding without difficulty. Feeding well. Denies chest pain, shortness of breath, calf pain/swelling, fevers, chills, lightheadedness. Objective Data Objective Data Vital Signs: Vital Signs Temp Pulse Resp BP Pulse Ox O2 Del Method 97 F L 90 16 117/79 94 Room Air 10/20/22 03:38 10/20/22 03:38 10/20/22 03:38 10/20/22 03:38 10/20/22 03:38 10/20/22 03:38 Oxygen Delivery Method Room Air Weight: 194 lb 7.163 oz Body Mass Index (BMI) 35.5 Intake & Output: Intake and Output for Last 24 Hours 10/18/22 10/19/22 10/20/22 23:59 23:59 23:59 Intake Total 1530 / 1530 960 / 960 Output Total 600 / 600 300 / 300 Balance 930 / 930 660 / 660 Lab / Micro Data Result Diagrams: 10/20/22 05:26 10/19/22 09:15 Labs: Laboratory Results - last 24 hr 10/19/22 09:15: U Random Total Protein 7.4, Urine Creatinine 28.20, Protein/Creatinin Ratio 262 H 10/19/22 09:15: Creatinine 0.57, Estim Creat Clear Calc 107.92, Est GFR (MDRD) Af Amer 153, Est GFR (MDRD) Non-Af 126, Uric Acid 4.5, AST 9 L, ALT 10 L 10/19/22 09:30: WBC 14.8 H, RBC 3.90 L, Hgb 12.1, Hct 35.5 L, MCV 91.0, MCH 31.0 , MCHC 34.1, RDW Std Deviation 42.3, RDW Coeff of Calbe 12.8, Plt Count 277, MPV 10.3 10/19/22 09:30: Blood Type A POSITIVE, Antibody Screen NEGATIVE 10/19/22 10:00: Urine Opiates Screen NEGATIVE, Urine Methadone Screen NEGATIVE, Ur Barbiturates Screen NEGATIVE, Ur Phencyclidine Scrn NEGATIVE, Ur Amphetamines Screen NEGATIVE, MDMA (Ecstasy) Screen NEGATIVE, U Benzodiazepines Scrn NEGATIVE, Urine Cocaine Screen NEGATIVE, U Cannabinoids Screen NEGATIVE, Ur Drug Screen Comment 10/20/22 05:26: WBC 16.9 H, RBC 3.26 L, Hgb 10.0 L, Hct 30.5 L, MCV 93.6, MCH 30.7, MCHC 32.8, RDW Std Deviation 43.7, RDW Coeff of Caleb 12.7, Plt Count 242, MPV 10.1 Physical Exam Const alert, oriented x3 and no apparent distress Resp normal respiratory effort, normal air movement, no retractions and no use of accessory muscles Cardio regular rate GI normal to inspection, nondistended, normoactive bowel sounds and soft to palpation GI Narrative: fundus firm at u scant lochia Bladder / Kidney Exam: catheter in place urethral (draining clear straw colored urine) Skin Skin Narrative: dressing clean, dry and intact Neuro oriented x3 Assessment & Plan (1) Status post section: COMMENT: 10/19/22-MINERVA MITTAL girl PLAN: Plan s/p LTCS PPD # 2 1. routine post care 2. breast feeding- support given 3. rh positive 4. rubella immune 5. d/c porras catheter today 6. transition to PO pain medications 7. plan on d/c tomorrow
[2022-10-20] MEDS: Senna/Docusate Sodium 1 Tablet PO (09:40)
[2022-10-20] MEDS: 0.9% Saline Lock 10 ML Syringe IV (09:41)
[2022-10-20] MEDS: Enoxaparin 40 MG/0.4 ML Syringe SC (09:47)
[2022-10-20 13:05] VITALS: BP 138/80; PULSE 89; RESP 18; TEMP 36
--- NOTE | 2022-10-20 14:12 | PCM.CONS.B ---
Consult pt voiding spontaneously. tolerating PO pain medication with effect. desires d/c home today. Assessment & Plan Assessment/Plan (1) Status post section: PLAN: stable for d/c home
[2022-10-20] MEDS: Naproxen 500 MG Tablet PO (16:32)
[2022-10-20 16:34] VITALS: BP 137/77; PULSE 99; RESP 18; TEMP 36.6
== END 2022-10-20 19:20 | disposition home or self-care (01) | DRG 540 ==
LOC: WPOUT 11:02 → WP 11:02
PROVIDERS: Admitting Provider Obstetrics & Gynecology; PCP Family Medicine; Referring Provider Obstetrics & Gynecology; Visit Provider Obstetrics & Gynecology
DX: O32.1XX0 Maternal care for breech presentation, not applicable or unspecified (principal); O26.873 Cervical shortening, third trimester; I48.91 Unspecified atrial fibrillation; E03.9 Hypothyroidism, unspecified; F12.10 Cannabis abuse, uncomplicated; F17.200 Nicotine dependence, unspecified, uncomplicated; M79.7 Fibromyalgia; F41.9 Anxiety disorder, unspecified; O26.23 Pregnancy care for patient with recurrent pregnancy loss, third trimester; O9A.12 Malignant neoplasm complicating childbirth; O99.284 Endocrine, nutritional and metabolic diseases complicating childbirth; Z3A.37 37 weeks gestation of pregnancy; Z37.0 Single live birth; O99.344 Other mental disorders complicating childbirth; O34.219 Maternal care for unspecified type scar from previous cesarean delivery; O99.334 Smoking (tobacco) complicating childbirth; O99.893 Other specified diseases and conditions complicating puerperium
CPT/HCPCS: 59050; 80307; 82565; 82570; 84156; 84450; 84460; 84550; 85027; 86850; 86900; 86901; 99221; 99406; J7120; A4216; G0378; J2405

== ENCOUNTER → 2022-12-09 | Outpatient (CLI) | payer MEDICAID, SELFPAY | END | disposition home or self-care (01) | PROVIDERS: PCP Family Medicine; Referring Provider Nurse Practitioner Women's Health; Visit Provider Nurse Practitioner Women's Health | DX: Z01.419 Encounter for gynecological examination (general) (routine) without abnormal findings (principal) | CPT/HCPCS: 87624; 88175; G0145 ==

== ENCOUNTER → 2023-02-24 | Outpatient (CLI) | payer BC, MEDICAID, SELFPAY ==
--- NOTE | 2023-02-24 | IMM_PTH ---
PATIENT: ELIE FREEMAN LOC: [facility] U#:[id number] AGE/SX: 37/F ROOM: RE02/24/[address]: Dr. Kika Cardenas DO : 1985 BED: DIS: 02/24/2023 SPEC #: [id number] RECD: 02/25/23 12:54 STATUS: NICOLE REQ #: [id number] DARRIN: 02/24/23 00:[address]: Kika Cardenas DEPT: IMMUNOHISTOCHEMISTRY RECD BY: Ketty Vuong ENTERED: 02/25/23 12:55 SP TYPE: IMMUNO OTHR DR: Dr. Leslie Richmond MD Tissues: B - Uterine cervix, NOS Procedures: p16 (initial) KI-67 (add) PHYSICIAN & INSTITUTION [place] [id number] SPECIMEN INFORMATION: Tissue Source: B ? Cervix at 2 o?clock Clinical Info: ASCUS, HPV positive Specimen Number: [id number] CPT code: 36845, 27767 METHODOLOGY: Deparaffinized sections of prefer/formalin-fixed tissue or PAP/DQ stained slides are incubated with monoclonal/polyclonal antibodies/oligonucleotide probes. Localization is made via biotin free immunoperoxidase method. Appropriate controls are performed and reacted as expected. Results on target cell population are indicated in the following table: RESULTS: ANTIBODY / CLONE RESULT Block B P16 (E6H4) rare cells with patchy staining Ki-67 (30-9) positive, only in basal portion These tests were developed and their performance characteristics determined by [facility]. They may not have been cleared or approved by the [place]. Food and Drug Administration. The FDA has determined that such clearance or approval is not necessary. The above immunohistochemical/dualISH markers are ordered and reviewed by the Pathologist. INTERPRETATION: B. Cervix at 2 o?clock, biopsy: Focal minimal changes suspicious for HPV cytopathic effects. SJ:carey 02/28/2023
--- NOTE | 2023-02-24 | CER_PTH ---
PATIENT: ELIE FREEMAN LOC: [facility]#:[id number] AGE/SX: 37/F ROOM: RE02/24/[address]: Dr. Kika Cardenas DO : 1985 BED: DIS: 02/24/2023 SPEC #: [id number] RECD: 02/24/23 13:38 STATUS: NICOLE ANTONIO #: [id number] DARRIN: 02/24/23 00:[address]: Kika Cardenas DEPT: SURGICAL PATHOLOGY RECD BY: Navid Perales ENTERED: 02/24/23 13:38 SP TYPE: CERV OTHR DR: Dr. Leslie Richmond MD Tissues: A - Endocervical B - Uterine cervix, NOS Procedures: Surgery Specimen Level IV HEADER OPERATION: Colposcopy PRE-OP DIAGNOSIS: ASCUS, HPV positive TISSUE SUBMITTED: A ? Endocervical curettings, B ? 2 o?clock MICROSCOPIC DIAGNOSIS A. Endocervical curettings: Scant desquamated benign ecto- and endocervical epithelial cells and fragments of mucoid tissue, negative for dysplasia. B. Cervix, 2 o?clock, biopsy: A fragment of squamous mucosa with focal minimal changes suspicious for HPV cytopathic effects. ELGIN:carey 02/25/2023 COMMENT B. Immunohistochemistry ([id number]) for surrogate HPV marker (p16) supports the above diagnosis. MICROSCOPIC DESCRIPTION Slides are reviewed. GROSS DESCRIPTION A - The specimen consists of a metallic endoscopic cytobrush with adherent minute fragments of amezquita-red tissue brush in 2 ml of clear red fluid and labeled with the patient's name and and designated per the requisition as ECC. The material is dislodged from the brush and submitted for cytology preparation including cell block. B - Received in fixative is one container labeled with the patient's name and designated 2 o'clock. The specimen consists of one irregular fragment of light amezquita soft tissue that measures 0.4 x 0.3 x 0.1 cm. The specimen is totally submitted in one cassette. / SJ:carey 02/24/2023 TC:5 CPT: 72306 x2
== END | disposition home or self-care (01) ==
LOC: LABSPEC 13:02
PROVIDERS: PCP Family Medicine; Visit Provider Obstetrics & Gynecology
DX: R87.810 Cervical high risk human papillomavirus (HPV) DNA test positive (principal)
CPT/HCPCS: 88305; 88341; 88342